=== PATIENT | female | born 1950 | race Caucasian/White ===

== ENCOUNTER 2017-12-17 23:33 | Emergency (ER) | payer OTHER ==
[~2017-12-17] VITALS: Ht 165.1 cm; Wt 61.2 kg
[2017-12-17] MEDS ORDERED: CIPR-262 PO (23:52)
--- NOTE | 2017-12-18 00:22 | NUR ---
PATIENT [id number]. ABLE TO SPEAK IN COMPLETE SENTENCES.ABLE TO MAKE NEEDS KNOWN. RESPONSIVE TO VERBAL AND TACTILE STIMULI. AMBULATORY WITH STABLE GAIT. PATIENT COMES FROM HOME ACCOMPANIED BY FRIEND. PATIENT HAS C/O LOWER BACK PAIN RADIATING TO HER RIGHT FLANK STARTING Saturday. SHE WAS SEEN AT [facility] ON SATURDAY, SHE STATES SHE WAS DIAGNOSED WITH "KIDNEY INFECTION". PATIENT STATES SHE WAS GIVEN CIPRO AND TRAMADOL, SHE COMES IN STATING THE TRAMADOL IS NOT EFFECTIVE FOR HER PAIN AT THIS TIME. PATIENT STATES SHE HAS INTERMITTENT NAUSEA, BUT NO VOMITING. PATIENT DENIES PAST MEDICAL HISTORY. PATIENT STATES SHE TOOK 4 ASPIRIN @ 1800, AND 1999 SHE TOOK TYLENOL 500MG (6-8 TABLETS). RESPIRATIONS EVEN AND UNLABORED. NO SOB OR CONGESTION NOTED. NO COUGH NOTED. SPEACH IS CLEAR, NO SOB WITH EXERTION OR EXTENSIVE PERIODS OF TALKING. NO CARDIOVASCULAR DISTRESS NOTED. PULSES PRESENT AND PALPABLE. SKIN IS WARM AND DRY TO THE TOUCH. SKIN TURGOR WNL, NO S/S OF DEHYDRATION AT THIS TIME. NO GI/ DISTRESS AT THIS TIME. PATIENT STATES " I HAVE BEEN CONSTIPATED, AND HAVE A DIFFICULT TIME PEEING" HOWEVER SHE WAS ABLE TO PROVIDE URINE WITHOUT DIFFICULTY OR COMPLAINT OF DYSURIA. ABLE TO PASS FLATUS AT THIS TIME. BOWEL SOUNDS PRESENT , NORMOACTIVE. NO ABD DISTENTION NOTED. CALL LIGHT IS WITHIN REACH. BED IN LOWEST POSITION, WHEELS LOCKED, SIDERAILS ELEVATED X 2. @0022 ER MD AT BEDSIDE FOR PATIENT EVALUATION.
[2017-12-18] MEDS ORDERED: IBUPROFEN 800 MG TABLET ONE (00:29)
[2017-12-18] MEDS ORDERED: IBUPROFEN 800 MG TABLET PO ONE (00:30)
--- NOTE | 2017-12-18 00:30 | NUR ---
PATIENT TAKEN TO CT. VSS. NO ACUTE DISTRESS
--- NOTE | 2017-12-18 00:41 | NUR ---
PT BACK FROM CT SCAN. NO ACUTE DISTRESS NOTED.
[2017-12-18 00:42] LABS: BASOPHILS # (AUTO) 0.1 K/uL (0.0-8.0); BASOPHILS % (AUTO) 0.8 % (0.0-2.0); EOSINOPHILS % (AUTO) 0.4 % (0.0-7.0); HEMATOCRIT 38.3 % (31.2-41.9); HEMOGLOBIN 13.3 g/dL (10.9-14.3); LYMPHOCYTES # (AUTO) 2.1 K/uL (20.0-40.0); LYMPHOCYTES % (AUTO) 19.7 % (20.5-51.5); MEAN CORPUSCULAR HEMOGLOBIN 29.2 uug (24.7-32.8); MEAN CORPUSCULAR HGB CONC 35 g/dL (32.3-35.6); MEAN CORPUSCULAR VOLUME 83.9 fL (75.5-95.3); MONOCYTES # (AUTO) 0.8 K/uL (2.0-10.0); MONOCYTES % (AUTO) 6.9 % (0.0-11.0); NEUTROPHILS # (AUTO) 7.9 K/uL (1.8-8.9); NEUTROPHILS % (AUTO) 72.2 % (38.5-71.5); PLATELET COUNT (AUTO) 309 K/uL (179-408); RED BLOOD CELL COUNT(AUTO) 4.56 MIL/uL (3.63-4.92); WHITE BLOOD COUNT (AUTO) 10.9 K/uL (3.8-11.8)
[2017-12-18 00:43] LABS: *BILIRUBIN,URIN NEGATIVE (NEGATIVE); *BLOOD, URINE Trace-intact (NEGATIVE); *CLARITY,URINE CLEAR (CLEAR); *COLOR,URINE YELLOW (YELLOW); *KETONES,URINE 3+ (NEGATIVE); *PROTEIN,URINE NEGATIVE (NEGATIVE); *UROBILINOGEN,URINE 0.2 E.U./dl (NORMAL); LEUKOCYTE ESTERASE ,URINE NEGATIVE (NEGATIVE); NITRITE, URINE NEGATIVE (NEGATIVE); UGLUCOSE NEGATIVE (NEGATIVE)
[2017-12-18 00:53] LABS: CREATININE 0.7 mg/dL (0.6-1.3); POTASSIUM 3.5 mmol/L (3.5-5.1)
[2017-12-18 00:57] LABS: BACTERIA,URINE NONE SEEN /HPF (NONE SEEN); MUCUS,URINE FEW /LPF (0-FEW); SQUAMOUS EPITHELIAL CELL,UR FEW /HPF (NONE SEEN); WBC,URINE 0-3 /HPF (0-3)
[2017-12-18 00:59] LABS: BILIRUBIN,DIRECT 0.1 mg/dL (0.0-0.2); BILIRUBIN,TOTAL 0.4 mg/dL (0.2-1.0); TOTAL PROTEIN, SERUM 8.2 g/dL (6.4-8.2)
[2017-12-18] MEDS ORDERED: ACETAMINOPHEN 325 MG TABLET PO ONE (01:15)
[2017-12-18] MEDS ORDERED: ACETAMINOPHEN 325 MG TABLET ONE (01:18)
[2017-12-18] MEDS ORDERED: ACETAMINOPHEN ES 500 MG TABLET ONE (01:19)
--- NOTE | 2017-12-18 01:19 | NUR ---
PATIENT IN BED, PATIENT STATES SHE HAS INCREASING PAIN, ER MD IS AWARE. NEW ORDERS NOTED AND CARRIED OUT
--- NOTE | 2017-12-18 02:09 | NUR ---
Patient discharged to home in stable conditon. Written and verbal after care instructions given. Patient verbalizes understanding of instructions. Ambulated from ER with stable gait. All belongings with patient.
[2017-12-18 02:16] VITALS: BP 128/78
== END 2017-12-18 02:17 | disposition home or self-care (01) ==
LOC: ER 23:41
DX: M54.5 Low back pain (principal); F17.210 Nicotine dependence, cigarettes, uncomplicated; Z79.2 Long term (current) use of antibiotics
CPT/HCPCS: 36415; 74176; 80048; 80076; 81001; 83690; 84484; 85025; 85730; 99285; A4663; A9150; 70030-TC